=== PATIENT | female | born 1970 | race Caucasian/White ===

== ENCOUNTER 2019-03-11 06:29 | Day surgery (SDC) | payer OTHER ==
[~2019-03-11] VITALS: Ht 165.1 cm; Wt 68.0 kg
[2019-03-11] MEDS ORDERED: KRILL OIL 3001 EACH PO (06:52)
[2019-03-11] MEDS ORDERED: MELATONIN3 MG PO (06:52)
[2019-03-11 06:53] VITALS: BP 120/82; PULSE 63; TEMP 98.1
[2019-03-11 08:20] VITALS: BP 109/81; PULSE 59
--- NOTE | 2019-03-11 08:20 | NUR ---
Patient returns to room 2 per cart and transfers from cart to recliner with one person assist. Temp 97.1 and room air sats 100%. IV fluids infusing and call light in reach. Daugther in room. Call light in reach. Dr. Blanc in room and talks with patient and dtr. All questions answered. Patient drinking glass of water.
[2019-03-11 08:35] VITALS: BP 113/82; PULSE 64
--- NOTE | 2019-03-11 08:35 | NUR ---
Sipping on water. Denies pain or nausea. Offered snack and refuses. States that she is not hungry and wishes to wait until after discharge.
[2019-03-11 08:50] VITALS: BP 120/82; PULSE 62
--- NOTE | 2019-03-11 08:50 | NUR ---
Room air sats 100%. Continues to deny pain or nausea. Toleratesd water.
--- NOTE | 2019-03-11 08:55 | NUR ---
IV discontinued and given dismissal instructions. Voices understanding of home cares and follow up as needed.
--- NOTE | 2019-03-11 09:03 | NUR ---
Patient dismissed to home per private vehicle driven by daughter and taken to the front door per wheelchair and assisted into vehicle by RN and dismissal instructions in hand.
== END 2019-03-11 09:03 | disposition home or self-care (01) ==
LOC: SDCO 06:29
DX: Z12.11 Encounter for screening for malignant neoplasm of colon (principal); K64.4 Residual hemorrhoidal skin tags; K62.89 Other specified diseases of anus and rectum; F41.9 Anxiety disorder, unspecified; F32.9 Major depressive disorder, single episode, unspecified; J30.9 Allergic rhinitis, unspecified; Z85.828 Personal history of other malignant neoplasm of skin; Z88.8 Allergy status to other drugs, medicaments and biological substances; Z79.84 Long term (current) use of oral hypoglycemic drugs
CPT/HCPCS: J2250; J2704; J3010; J7120